=== PATIENT | female | born 1965 | race Caucasian/White ===

== ENCOUNTER 2023-09-23 00:58 | Emergency (ER) | payer OTHER ==
[~2023-09-23] VITALS: Ht 160 cm; Wt 90.0 kg
[2023-09-23 01:05] VITALS: O2SAT 98
[2023-09-23 01:16] LABS: BASOPHILS % 0.4 % (0.0-2.0); EOSINOPHILS % 2.3 % (0.0-5.0); HEMATOCRIT. 32.1 % (36.0-48.0); HEMOGLOBIN. 11.2 g/dL (12.0-16.0); LYMPHOCYTES % 26.4 % (20.0-50.0); MEAN CORPUSCULAR HEMOGLOBIN 32.3 pg (28.0-32.0); MEAN CORPUSCULAR HGB CONC 34.7 g/dL (31.0-37.0); MEAN PLATELET VOLUME 10.1 fl (7.4-10.4); MONOCYTES % 5.7 % (2.0-8.0); NEUTROPHILS % 65.2 % (40.0-76.0); PLATELET 152 x1000/uL (130-400); RED BLOOD CELL COUNT 3.46 mill/uL (4.2-5.4); RED CELL DISTRIBUTION WIDTH 14.1 % (11.6-14.6)
[2023-09-23 01:24] LABS: CHLORIDE 106 mEq/L (98-107); POTASSIUM 3.3 mEq/L (3.5-5.1); SODIUM 141 mEq/L (136-145)
[2023-09-23 01:25] LABS: CALCIUM 9.9 mg/dL (8.7-10.4); CARBON DIOXIDE 24 mEq/L (21-32)
[2023-09-23 01:30] LABS: CREATININE 1.7 mg/dL (0.6-1.0); GLUCOSE 140 mg/dL (70-105); UREA NITROGEN BLOOD 17 mg/dL (9-23)
[2023-09-23 01:31] LABS: AMMONIA 18 uMol/L (<32); TROPONIN I HIGH SENSITIVITY 10 ng/L (3.0-34)
[2023-09-23 01:32] LABS: ALANINE AMINOTRANSFERASE 37 IU/L (10-49); ALBUMIN 4.3 g/dL (3.2-4.8); ASPARTATE AMINOTRANSFERASE 38 IU/L (<34); BILIRUBIN TOTAL 1.5 mg/dL (0.1-1.0); CREATINE KINASE 68 IU/L (34-145); PROTEIN TOTAL 6.8 g/dL (6.0-8.3)
[2023-09-23 01:38] LABS: ETHANOL BLOOD < 10 mg/dL (<10)
[2023-09-23 07:35] LABS: CLARITY URINE CLEAR (CLEAR); COLOR URINE YELLOW (YELLOW); GLUCOSE URINE NEGATIVE (NEGATIVE); KETONES URINE NEGATIVE (NEGATIVE); LEUKOCYTE ESTERASE URINE NEGATIVE (NEGATIVE); NITRITE URINE NEGATIVE (NEGATIVE); OCCULT BLOOD URINE NEGATIVE (NEGATIVE); PH URINE 6.5 (4.5-8.0); PROTEIN URINE NEGATIVE (NEGATIVE); SPECIFIC GRAVITY URINE 1.007 (1.005-1.030); UROBILINOGEN URINE 0.2 E.U./dL (0.2-1.0)
[2023-09-23 07:52] LABS: *AMPHETAMINES SCREEN URINE NEGATIVE (NEGATIVE)
[2023-09-23 07:53] VITALS: BP 145/79; PULSE 67; RESP 13; TEMP 98
[2023-09-23 07:53] LABS: *BARBITURATES SCREEN URINE NEGATIVE (NEGATIVE); *BENZODIAZEPINES SCREEN URINE NEGATIVE (NEGATIVE); *COCAINE SCREEN URINE NEGATIVE (NEGATIVE); CANNABINOID URINE SCREEN NEGATIVE (NEGATIVE); ECSTASY MDMA SCREEN URINE NEGATIVE (NEGATIVE); METHADONE URINE SCREEN NEGATIVE (NEGATIVE); OPIATES URINE SCREEN NEGATIVE (NEGATIVE); PHENCYCLIDINE URINE SCREEN NEGATIVE (NEGATIVE)
[2023-09-23] MEDS: LEVETIRACETAM 500MG PREMIX 100 ML IV NR (07:57)
[2023-09-23] MEDS: POTASSIUM CHLORIDE 20MEQ/PACKET PO NR (07:57)
== END 2023-09-23 08:15 | disposition short-term general hospital (02) ==
LOC: ER 00:58 → CANBEDREQ 21:09
DX: R56.9 Unspecified convulsions (principal); R47.01 Aphasia; N28.9 Disorder of kidney and ureter, unspecified; E87.6 Hypokalemia; I10 Essential (primary) hypertension; Z86.73 Personal history of transient ischemic attack (TIA), and cerebral infarction without residual deficits
CPT/HCPCS: 80053; 80305; 81003; 80320; 82140; 82550; 83690; 85025; 84484; 36415; 71045; 70450; 96365; 99285; J1953; Z7610; G0480